=== PATIENT | female | born 1995 | race Caucasian/White ===

== ENCOUNTER 2016-05-11 06:38 | Day surgery (SDC) | payer OTHER ==
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
[~2016-05-11 06:38] MED LIST: CEFAZOLIN SODIUM 2 GRAM PREMIX 100 ML IV ONE; CEFAZOLIN SODIUM 2 GRAM PREMIX 100 ML IV PRN; IV START KIT ONE; LACTATED RINGERS 1,000 ML ONE
[2016-05-11] MEDS ORDERED: BUPIVACAINE 0.5% W/EPI SDV 30 ML VIAL ONE (07:23)
[2016-05-11] MEDS ORDERED: PROPOFOL 20 ML IV ONE (08:30)
[2016-05-11] MEDS ORDERED: LIDOCAINE 2% (PRES FREE) 5 ML VIAL ONE (08:32)
[2016-05-11] MEDS ORDERED: FENTANYL 250 MCG/5 ML AMP ONE (08:37)
[2016-05-11] MEDS ORDERED: MIDAZOLAM HCL 1 MG/ML 2ML VIAL ONE (08:38)
[2016-05-11] MEDS ORDERED: FENTANYL 100 MCG/2 ML VIAL IV PRN (09:45)
[2016-05-11] MEDS ORDERED: LACTATED RINGERS 1,000 ML IV SCH ×2 (09:45→10:59)
[2016-05-11] MEDS ORDERED: ONDANSETRON 4 MG/2ML 2 ML VIAL IV PRN ×2 (09:45→10:59)
[2016-05-11] MEDS ORDERED: NALOXONE HCL 0.4 MG/ML VIAL IV PRN (09:45)
[2016-05-11] MEDS ORDERED: PROMETHAZINE HCL 25 MG/ML VIAL IM PRN (09:45)
[2016-05-11] MEDS ORDERED: ATROPINE SULFATE 0.4 MG/1 ML VIAL IV PRN (09:45)
[2016-05-11] MEDS ORDERED: MEPERIDINE 25 MG/ML SYRINGE IV PRN (09:45)
[2016-05-11] MEDS ORDERED: HYDROMORPHONE HCL 1 MG/ML SYRINGE IV PRN ×2 (09:45→10:59)
[2016-05-11] MEDS ORDERED: HYDRALAZINE HCL 20 MG/1 ML VIAL IV PRN (09:45)
[2016-05-11] MEDS ORDERED: LABETALOL HCL 5 MG/ML 20ML VIAL IV PRN (09:45)
--- NOTE | 2016-05-11 10:25 | PCMBPN ---
Brief Post Op Note: Date of Procedure: 05/11/16 Start Time: 944 Preoperative Diagnosis: 1. left knee lateral meniscus tear, ACL injury Postoperative Diagnosis: 1. Same Procedure: left knee diagnostic arthroscopy, partial lateral meniscectomy Surgeon: Matty Lomax MD Assist: Boston Jett PA-C Anesthesia: Slim Lindsay Findings: ACL ruptured from lateral wall of notch, scarred down to PCL, intraoperative Curtis/AD appeared stable, but patient has rotatory instability Condition: stable to PACU Complications: none IV Fluids: 800 mLs of LR Urine Output: 0 mLs Estimated Blood Loss: 5 mLs Tourniquet Time: 25 min at 250 mm Hg Specimens: none Implants: none Drains: none Matty Lomax MD
[2016-05-11] MEDS ORDERED: DEXAMETHASONE SOD PHOS 4 MG/1 ML VIAL ONE (10:38)
[2016-05-11] MEDS ORDERED: DIPHENHYDRAMINE HCL 50 MG/1 ML VIAL IV PRN (10:59)
[2016-05-11] MEDS ORDERED: ACETAMINOPHEN 325 MG TABLET PO PRN (10:59)
[2016-05-11] MEDS ORDERED: OXYCODONE/ACETAMINOPHEN 5/325 MG TABLET PO PRN (10:59)
[2016-05-11] MEDS ORDERED: OXYCODONE/ACETAMINOPHEN 5/325 MG TABLET ONE (11:42)
--- NOTE | 2016-05-12 14:10 | OP ---
Kay ARGUELLO : 1995 [id number] DATE OF PROCEDURE: May 11, 2016 PREOPERATIVE DIAGNOSIS: Left knee lateral meniscus tear and ACL injury. POSTOPERATIVE DIAGNOSES: Left knee lateral meniscus tear and ACL injury. PROCEDURE PERFORMED: LEFT KNEE ARTHROSCOPY WITH PARTIAL LATERAL MENISCECTOMY. SURGEON: Matty Lomax M.D. MEDICAL SECRETARY TEACHER: Asim Jett P.A.-C. ANESTHESIA: Yossi Lindsay C.R.N.Horacio. SPECIMENS: No material was sent to the laboratory. ESTIMATED BLOOD LOSS: 5 mL FLUIDS REPLACED: 800 mL of crystalloid. TOURNIQUET TIME: 25 minutes at 250 mmHg. URINE OUTPUT: None. IMPLANTS: None. DRAINS: No drains. INDICATIONS: This is a 20-year-old female who complains of pain and mechanical symptoms in the right knee that have been increasing over time and have not responded to a course of nonoperative measures. Patient has an exam and imaging studies which are consistent with the above. Given failure to improve with nonoperative measures patient was consented for left knee arthroscopy with partial lateral meniscectomy. The risks, benefits and alternatives were discussed at length with that patient and they elected to proceed with surgery. Informed consent was obtained and documented in the chart and the patient was placed on the schedule the first available convenience. DESCRIPTION OF PROCEDURE: The patient was identified in the preoperative holding area where they were marked with an indelible marker by the operating surgeon. Patient was taken to the operating room where they were placed in the supine position the operating room table. A general anesthesia was induced, perioperative antibiotics were administered and a well padded pre-calibrated nonsterile tourniquet was placed on the left upper thigh. Patient was prepped and draped in the usual sterile fashion for surgery. An operative time out was performed and confirmed by all members of the operative team confirming the patient identity, procedure to be performed and the laterally for that procedure. All necessary personnel, equipment and implants were in place and there were no safety concerns. The leg was elevated and exsanguinated using the Esmarch bandage and the tourniquet was inflated to 250 mmHg. A standard lateral portal was created and the 30 degree viewing arthroscope was inserted into the knee. Optics were directed anteromedially and a medial portal was localized and created in a standard fashion. A probe was inserted through this medial portal and used in completion of the diagnostic arthroscopy with the following findings: The medial compartment was intact for the medial meniscus, medial femoral condyle, medial tibial plateau. The patellofemoral compartment showed no significant chondromalacia. Her patella tends to sit somewhat laterally at rest but engages well into the trochlea as soon if she goes into any degree of flexion. In the lateral compartment we found a split tear of the posterior horn of the lateral meniscus that was irreparable. This was debrided. The femoral condyle and tibial plateau, both showed signs of wear, but no full thickness cartilage defects. In the midportion of the knee the PCL was intact. The ACL had any falls from the femur, but a significant portion of the ACL was scarred down to the PCL and appears to be providing anterior posterior translational stability through these scar adhesions. The patient did appear to have some rotatory instability on intraoperative testing. After completion of diagnostic arthroscopy the probe was exchanged for an arthroscopic biter and this was used to resect back the lateral meniscus to a stable rim. This was then exchanged for arthroscopic resector shaver which was used to complete the partial lateral meniscectomy and perform a light debridement of the lateral wall of the notch to ensure that there were no intact fibers of the ACL connecting this lateral wall. At this point we felt that we had addressed the patient's intra-articular pathology same for the ACL, the patient had been counseled preoperatively that if we did find a structural ACL deficit we would not be prepared to address that today and that, that would be an issue to address surgically in the future if she decided she wanted it and so the camera and instruments were removed from the knee. The portal sites were closed with #4-0 Nylons; 20 mL of 0.5% Marcaine was injected into the knee for perioperative analgesia. A sterile dressing of Xeroform, fluffs, ABDs, web roll and then an CARLINE bandage from ankle to the thigh was applied. The tourniquet was deflated, the drapes were removed. The patient was awakened from anesthesia and extubated in the operating room without difficulty. Patient was transferred to a stretcher and taken postoperatively to the post anesthesia care unit in stable condition. There were no observed intraoperative complications during this procedure. Job [id number] Cc: [facility]
== END 2016-05-11 12:33 | disposition home or self-care (01) ==
LOC: SDC 06:38
PROVIDERS: ATTEND Orthopaedic Surgery
PROC: 0SBD4ZZ Excision of Left Knee Joint, Percutaneous Endoscopic Approach (ICD-10-PCS; principal; 2016-05-11)
DX: S83.512A Sprain of anterior cruciate ligament of left knee, initial encounter (principal); W17.89XA Other fall from one level to another, initial encounter
CPT/HCPCS: 29881; J3010; J1100; A9270; J2250; J7120; J0690